=== PATIENT | male | born 1970 | race African-American/Black ===

== ENCOUNTER 2019-09-12 04:29 | Emergency (ER) | payer BC ==
[2019-09-12 05:10] VITALS: BP 140/80; PULSE 88; TEMP 98.6; BMI 25.0
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
[2019-09-12] MEDS ORDERED: IBUPROFEN 400 MG TABLET (FP) PO ONE ×2 (05:22→05:29)
[2019-09-12] MEDS ORDERED: ACETAMINOPHEN 325 MG TABLET (FP) PO ONE (05:22)
[2019-09-12] MEDS ORDERED: LIDOCAINE 5% TOPICAL PATCH TP ONE (05:22)
[2019-09-12] MEDS ORDERED: CYCLOBENZAPRINE HCL 5 MG TABLET PO ONE ×2 (05:23→05:29)
[2019-09-12] MEDS ORDERED: CYCLOBENZAPRINE HCL 10 MG TABLET (FP) ONE (05:28)
[2019-09-12] MEDS ORDERED: ACETAMINOPHEN 325 MG TABLET (FP) ONE (05:28)
[2019-09-12] MEDS ORDERED: LIDOCAINE 5% TOPICAL PATCH ONE (05:29)
--- NOTE | 2019-09-12 05:40 | PDOC ---
Attending Attestation - Resident Resident Name: Talat Abbasi - ED Attending Attestation I have performed the following: I have examined & evaluated the patient, The case was reviewed & discussed with the resident, I agree w/resident's findings & plan - HPI HPI: 09/12/19 06:17 see resident hpi - Physicial Exam PE: 09/12/19 06:18 agree with resident exam - Medical Decision Making 09/12/19 06:18 48-year-old male with history of low back pain now worse status post fall CT scan lumbar spine shows no acute fracture Patient is neuro intact Will DC after analgesics with outpatient follow-up and lifting restrictions
[2019-09-12] MEDS ORDERED: LIDOCAINE PATCH REMOVAL MC SCH (22:00)
== END 2019-09-12 06:43 | disposition home or self-care (01) ==
LOC: JER 04:29
DX: M51.26 Other intervertebral disc displacement, lumbar region (principal); G89.29 Other chronic pain
CPT/HCPCS: 72131-TC; 99282-25

== ENCOUNTER 2019-09-18 14:33 | Observation (INO) | payer BC ==
--- NOTE | 2019-09-18 14:36 | PDOC ---
Rapid Medical Evaluation Time Seen by Provider: 09/18/19 14:35 Medical Evaluation: Allergies Allergy/AdvReac Type Severity Reaction Status Date / Time No Known Allergies Allergy Verified 09/12/19 05:09 09/18/19 14:36 I have performed a brief in-person evaluation of this patient. The patient presents with a chief complaint of: Lower back pain. H/o chronic back pain s/p remote injury, no imaging in past. Seen in ED several days ago for same after heavy lifting at work. States he was given meds in ER which relieved pain but was not sent home w/ any rx. Tried motrin and tylenol w/ no relief. 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 No acute neuro sxs Pertinent physical exam findings:stable and in NAD, ambulating I have ordered the following:nothing The patient will proceed to the ED for further evaluation. 09/18/19 14:42 Discharge Disposition - Diagnosis Low back pain Qualifiers: Chronicity: acute Back pain laterality: unspecified Sciatica presence: without sciatica Qualified Code(s): M54.5 - Low back pain - Referrals - Patient Instructions - Post Discharge Activity
[2019-09-18] MEDS ORDERED: ACETAMINOPHEN 1000 MG/100 ML VIAL (NON FORMULARY) IVPB ONE (16:11)
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
--- NOTE | 2019-09-18 16:16 | PDOC ---
Attending Attestation - Resident Resident Name: Parijean claudeRo moore - ED Attending Attestation I have performed the following: I have examined & evaluated the patient, The case was reviewed & discussed with the resident, I agree w/resident's findings & plan, Exceptions are as noted - HPI HPI: 09/18/19 16:17 48-year-old male with history of chronic back pain complains of worsening lower back pain with paresthesias to the left lower extremity after a recent fall. Patient denies bowel bladder dysfunction, complains of difficulty ambulating. Patient seen by neurosurgery and referred to the ER. - Physicial Exam PE: 09/18/19 16:21 Patient is awake and alert, well-nourished, in mild distress Normocephalic and atraumatic PERRLA, EOMI Neck is supple CTA RRR Pelvis stable Cranial nerves II through XII grossly intact; motor is 5 of 5; DTRs are +2 at the ankle and knee bilaterally + numerous keloids 09/18/19 16:23 - Medical Decision Making 09/18/19 16:22 48-year-old male with chronic low back pain complains of worsening pain with left lower extremity paresthesias. No evidence of cord compression at this time. Will obtain stat MRI of LS spine to evaluate for possible disc herniation with nerve root involvement. Will admit.
[2019-09-18] MEDS ORDERED: ACETAMINOPHEN INJECTION 100 ML IVPB ONE (16:28)
[2019-09-18 17:06] LABS: BASO % 0.8 % (0-2.0); EOS % 1.8 % (0-4.5); HEMOGLOBIN 13.6 GM/dL (11.7-16.9); LYMPH % 29.7 % (8-40); MCH 33.2 pg (25.7-33.7); MCHC 33.2 g/dl (32.0-35.9); MEAN CELL VOLUME 99.9 fl (80-96); MEAN PLT VOLUME 6.4 fl (7.5-11.1); MONO % 7.6 % (3.8-10.2); NEUT % 60.1 % (42.8-82.8); PLATELET COUNT 323 K/MM3 (134-434); RDW 13.5 % (11.9-15.9); WHITE BLOOD COUNT 7.5 K/mm3 (4.0-10.0)
[2019-09-18 17:20] LABS: INR 1.09 (0.83-1.09); PROTHROMBIN TIME (PATIENT) 12.9 SEC (9.7-13.0)
[2019-09-18 17:32] LABS: ALBUMIN 4.1 g/dl (3.4-5.0); BILIRUBIN,TOTAL 0.3 mg/dL (0.2-1); BLOOD UREA NITROGEN 11.5 mg/dL (7-18); CALCIUM 9.1 mg/dL (8.5-10.1); CREATININE 1.1 mg/dL (0.55-1.3)
[2019-09-19] MEDS ORDERED: SODIUM CHLORIDE NASAL SPRAY 44 ML BOTTLE NS PRN ×2 (00:11→00:18)
[2019-09-19] MEDS ORDERED: DEXTROSE 5%-0.45% SALINE 1,000 ML IV SCH (00:15)
[2019-09-19] MEDS ORDERED: traMADol HCL 50 MG TABLET PO PRN (00:19)
[2019-09-19] MEDS ORDERED: OXYMETAZOLINE 0.05% NASAL SOLUTION 15 ML BOTTLE NS PRN (01:36)
[2019-09-19 03:32] VITALS: BMI 25.9
[2019-09-19] MEDS: DEXAMETHASONE 4 MG TABLET (FP) PO SCH ×2 (05:19→13:55)
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
[2019-09-19 15:47] VITALS: BP 139/89; PULSE 87; TEMP 98.9
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
[2019-09-19] MEDS ORDERED: NAPROXEN 500 MG TABLET (FP) PO SCH (22:00)
--- NOTE | 2019-09-20 09:40 | DS ---
Physical Exam: SUBJECTIVE: 48 y/o M w/ no known PMHx (Has not seen PCP in 2+ years) presents to ED yesterday with worsening low back pain. Pt reports his back pain began over the summer. Treated back pain with OTC meds, did not see any physicians for evaluation or treatment. On September 12 pt reports he was at work lifting a TARP over a truck in the rain and slipped and fell a few feet onto the ground. States he got up and attempted to lift the TARP resulting in another fall. After the second fall the patient experienced severe back pain and lle tingling/numbness. States he came into the ER and had a CT which revealed a disc herniation. Pt was given pain meds and d/c'd home. States pain/numbness continued to worsen and came to ED for further evaluation. Denies cp/sob, n/v/d. OBJECTIVE: Last Vital Signs Temp Pulse Resp BP Pulse Ox 98.9 F 87 18 139/89 99 09/19/19 14:42 09/19/19 14:42 09/19/19 14:42 09/19/19 14:42 09/19/19 10:42 PE GENERAL: awake, alert, and fully oriented, in no acute distress. HEAD: Normal with no signs of trauma. LUNGS: unlabored respirations. SpO2 99% on RA HEART: rrr ABDOMEN: Soft, nt, nd EXTREMITIES: 2+ pulses, warm, well-perfused, no edema. Neuro: 5/5 b/l dorsi/plantarflexion, 5/5 hip flexion/extension, sensation diminished in L L4/5 distribution PSYCH: Normal mood, normal affect. SKIN: Warm, dry, normal turgor, no rashes or lesions noted. LABS CBC, BMP 09/18/19 16:30 09/18/19 16:30 INR, PTT INR 1.09 (0.83-1.09) 09/18/19 16:30 HOSPITAL COURSE: Date of Admission:09/19/19 Date of Discharge: 09/20/19 48 y/o M w/ no known PMHx (Has not seen PCP in 2+ years) presents to ED yesterday with worsening low back pain. Pt reports his back pain began over the summer. Treated back pain with OTC meds, did not see any physicians for evaluation or treatment. On September 12 pt reports he was at work lifting a TARP over a truck in the rain and slipped and fell a few feet onto the ground. States he got up and attempted to lift the TARP resulting in another fall. After the second fall the patient experienced severe back pain and lle tingling/numbness. States he came into the ER and had a CT which revealed a disc herniation. Pt was given pain meds and d/c'd home. States pain/numbness continued to worsen and came to ED for further evaluation. Since admit to hospital, he was started on oral and iv pain regimen as well as steroids. Patient ambulating hallways unassisted. States his pain dropped to 5/ 10. Refusing surgery at this time. Patient to follow-up with Dr. Damon as out -patient. Minutes to complete discharge: 35 Visit type - Case Type Case Type: ED Admission - Emergency Emergency Visit: Yes ED Registration Date: 09/19/19 Care time: The patient presented to the Emergency Department on the above date and was hospitalized for further evaluation of their emergent condition. - New patient This patient is new to me today: Yes Date on this admission: 09/20/19
[2019-09-20] MEDS ORDERED: PANTOPRAZOLE SOD 40 MG SUSPENSION PACKET PO SCH (10:00)
== END 2019-09-19 16:55 | disposition home or self-care (01) ==
LOC: JERFT 14:33 → JERBED 15:58 → UNDOADMOB 15:58 → INTOOBSV 15:58 → J5S 19:59 → JERBED 19:59 → J5S 09-19 10:42
PROVIDERS: ADMIT Neurological Surgery; ATTEND Neurological Surgery
DX: M54.5 Low back pain (principal); M51.26 Other intervertebral disc displacement, lumbar region; W17.89XD Other fall from one level to another, subsequent encounter; Z87.828 Personal history of other (healed) physical injury and trauma
CPT/HCPCS: 36415; 71045-TC-FY; 72148-TC; 80053; 85025; 85610; 86850; 86900; 86901; 99285-25; G0378; J0131

== ENCOUNTER 2020-06-17 11:23 | Emergency (ER) | payer SELFPAY ==
[2020-06-17] MEDS ORDERED: IBUPROFEN 600 MG TABLET (FP) PO ONE (11:32)
[2020-06-17] MEDS ORDERED: AMOXICILLIN 500 MG CAPSULE (FP) PO ONE (11:32)
--- NOTE | 2020-06-17 11:32 | PDOC ---
Rapid Medical Evaluation Time Seen by Provider: 06/17/20 11:30 Medical Evaluation: Allergies Allergy/AdvReac Type Severity Reaction Status Date / Time No Known Allergies Allergy Verified 11/13/19 16:11 06/17/20 11:30 I performed a brief in-person evaluation of this patient. 49 y/o male with left mandibular tooth infection. Has appt with dentist this coming Monday. He took Motrin last night with relief. Pertinent physical exam findings: Left mandibular buccal gingiva swelling, no drainage visualized. I have ordered the following: Motrin, Amoxicillin Patient to proceed to ED for further evaluation. Discharge Disposition - Diagnosis Tooth infection - Referrals - Patient Instructions - Post Discharge Activity
[2020-06-17 11:33] VITALS: BP 160/90; PULSE 80; TEMP 98.2; BMI 25.8
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
== END 2020-06-17 12:18 | disposition home or self-care (01) ==
LOC: JERFT 11:23
DX: K04.7 Periapical abscess without sinus (principal)
CPT/HCPCS: 99283-25

== ENCOUNTER 2020-08-17 11:01 | Emergency (ER) | payer SELFPAY ==
[2020-08-17 11:08] VITALS: BP 131/95; PULSE 102; TEMP 97.8; BMI 26.6
[2020-08-17] MEDS ORDERED: ACETAMINOPHEN 1000 MG/100 ML VIAL (NON FORMULARY) IVPB ONE (12:50)
[2020-08-17] MEDS ORDERED: LIDOCAINE 5% TOPICAL PATCH TP ONE (12:50)
[2020-08-17] MEDS ORDERED: ACETAMINOPHEN INJECTION 100 ML IVPB ONE (13:09)
[2020-08-17] MEDS ORDERED: LIDOCAINE 5% TOPICAL PATCH ONE (13:09)
[2020-08-17] MEDS ORDERED: morphine CARPU-JECT 4 MG/1 ML DISP.SYRIN IVPUSH ONE ×2 (13:12→17:18)
[2020-08-17] MEDS ORDERED: morphine SULFATE 4 MG/ML VIAL ONE (13:17)
[2020-08-17 13:42] LABS: BASO % 0.6 % (0-2.0); EOS % 0.5 % (0-4.5); HEMATOCRIT 43.8 % (35.4-49); HEMOGLOBIN 14.6 GM/dL (11.7-16.9); LYMPH % 24.8 % (8-40); MCH 33.5 pg (25.7-33.7); MCHC 33.2 g/dl (32.0-35.9); MEAN CELL VOLUME 100.9 fl (80-96); MONO % 8.5 % (3.8-10.2); NEUT % 65.6 % (42.8-82.8); PLATELET COUNT 279 K/MM3 (134-434); RBC 4.34 M/mm3 (4.00-5.60); RDW 12.9 % (11.9-15.9); WHITE BLOOD COUNT 10.6 K/mm3 (4.0-10.0)
[2020-08-17 13:57] LABS: INR 0.96 (0.83-1.09); PROTHROMBIN TIME (PATIENT) 11.8 SEC (9.7-13.0)
[2020-08-17 14:00] LABS: ACTIVATED PTT 26.8 SECONDS (25.2-36.5)
[2020-08-17 14:09] LABS: POTASSIUM 4.7 mmol/L (3.5-5.1)
[2020-08-17 14:11] LABS: CALCIUM 9.1 mg/dL (8.5-10.1)
[2020-08-17 14:12] LABS: ALBUMIN 3.9 g/dl (3.4-5.0); BLOOD UREA NITROGEN 16.9 mg/dL (7-18)
[2020-08-17 14:15] LABS: CREATININE 1.1 mg/dL (0.55-1.3)
[2020-08-17 14:17] LABS: BILIRUBIN,TOTAL 0.7 mg/dL (0.2-1); TOT PROT 7.4 g/dl (6.4-8.2)
[2020-08-17] MEDS ORDERED: LIDOCAINE PATCH REMOVAL MC SCH (22:00)
== END 2020-08-17 18:26 | disposition home or self-care (01) ==
LOC: JER 11:01
PROC: 3E0333Z Introduction of Anti-inflammatory into Peripheral Vein, Percutaneous Approach (ICD-10-PCS; principal; 2020-08-17)
PROC: 3E033NZ Introduction of Analgesics, Hypnotics, Sedatives into Peripheral Vein, Percutaneous Approach (ICD-10-PCS; 2020-08-17)
DX: M51.06 Intervertebral disc disorders with myelopathy, lumbar region (principal)
CPT/HCPCS: 36415; 71045-TC-FY; 72131-TC; 72148-TC; 80053; 85025; 85610; 85730; 93005; 93010; 99285-25; C9803; J0131; U0003

== ENCOUNTER 2022-01-31 05:29 | Day surgery (SDC) | payer OTHER ==
[2022-01-28 15:28] VITALS: BMI 25.8
[2022-01-31] MEDS ORDERED: PROPOFOL 20 ML ONE ×3 (13:25)
[2022-01-31] MEDS ORDERED: BUPIVACAINE HCL/PF 0.5% (5MG/ML) 10 ML VIAL ONE (13:37)
[2022-01-31] MEDS ORDERED: IOHEXOL 180 MG/1 ML ML IJ ONE (13:43)
[2022-01-31] MEDS ORDERED: DEXAMETHASONE SOD PHOSPHATE 10 MG/1 ML VIAL IVPUSH ONE ×2 (13:46)
[2022-01-31] MEDS ORDERED: LIDOCAINE HCL 1% PRESERVATIVE FREE - 30ML VIAL IJ ONE (13:47)
[2022-01-31] MEDS ORDERED: BUPIVACAINE HCL/PF 0.25% (2.5MG/ML) 10 ML VIAL IJ ONE (13:47)
[2022-01-31] MEDS ORDERED: BUPIVACAINE HCL/PF 0.25% (2.5MG/ML) 10 ML VIAL ONE (15:18)
[2022-01-31] MEDS ORDERED: DEXAMETHASONE SOD PHOSPHATE 10 MG/1 ML VIAL ONE (15:18)
[2022-01-31 16:07] VITALS: BP 137/71; PULSE 70; TEMP 98.7
== END 2022-01-31 15:15 | disposition home or self-care (01) ==
LOC: JASU-SURG 05:29
PROVIDERS: ATTEND Physical Medicine & Rehabilitation
PROC: 3E0R33Z Introduction of Anti-inflammatory into Spinal Canal, Percutaneous Approach (ICD-10-PCS; 2022-01-31)
PROC: 3E0R3BZ Introduction of Anesthetic Agent into Spinal Canal, Percutaneous Approach (ICD-10-PCS; principal; 2022-01-31 12:00)
DX: M54.16 Radiculopathy, lumbar region (principal); M54.50 Low back pain, unspecified
CPT/HCPCS: J1100

== ENCOUNTER 2024-07-02 08:05 | Emergency (ER) | payer OTHER ==
[2024-07-02 08:15] VITALS: BP 108/71; PULSE 68; RESP 18; TEMP 97.6; BMI 25.8
== END 2024-07-02 09:37 | disposition home or self-care (01) ==
LOC: JERFT 08:05
DX: R68.84 Jaw pain (principal); K05.10 Chronic gingivitis, plaque induced
CPT/HCPCS: 99283-25